=== PATIENT | female | born 1955 | race Asian ===

== ENCOUNTER 2019-04-05 14:53 | Emergency (ER) | payer OTHER ==
--- NOTE | 2019-04-05 14:58 | PDOC ---
Rapid Medical Evaluation Time Seen by Provider: 04/05/19 14:56 Medical Evaluation: Allergies Allergy/AdvReac Type Severity Reaction Status Date / Time No Known Drug Allergies Allergy Verified 04/25/14 14:31 04/05/19 14:56 This patient had a brief in-person evaluation by me. cc: tripped and fall while working, states fell onto both knees and right wrist states pain is worse on left knee. PE: NAD even and unlabored breathing right wrist with small amount of swelling left knee + tendernes, + swelling Orders: xray This patient will proceed to Ed for further evaluation Discharge Disposition - Diagnosis Fall - Referrals - Patient Instructions - Post Discharge Activity
[2019-04-05 14:59] VITALS: BP 156/89; PULSE 72; TEMP 98.2; BMI 23.8
[2019-04-05] MEDS ORDERED: IBUPROFEN 400 MG TABLET (FP) PO ONE ×3 (15:51→15:59)
--- NOTE | 2019-04-05 15:57 | PDOC ---
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 Complaints of pain to knee, and wrist. No head injury, has taken no medication for resolve Occurred: reports: just prior to arrival, this afternoon Severity: reports: mild, moderate Pain Location: reports: lower extremity (bilateral knees ), upper extremity ( right wrist ) Method of Injury: Yes: fall Modifying Factors: improves with: cold therapy Loss of Consciousness: no loss of consciousness Associated Symptoms (Fall): denies symptoms Past History - Travel Traveled outside of the country in the last 30 days: No Close contact w/someone who was outside of country & ill: No - Past Medical History Allergies/Adverse Reactions: Allergies Allergy/AdvReac Type Severity Reaction Status Date / Time No Known Drug Allergies Allergy Verified 04/05/19 14:59 Home Medications: Ambulatory Orders Triamterene/Hydrochlorothiazid [Triamterene-Hctz 37.5-25 mg Tb] 1 each PO HS Aspirin [ASA -] 81 mg PO DAILY #30 tab.chew 05/02/14 Cefadroxil Hydrate [Cefadroxil] 500 mg PO BID #20 ml 05/02/14 Oxycodone HCl/Acetaminophen [Percocet 5-325 mg Tablet -] 1 tab PO Q6H #30 tablet 05/02/14 Oxycodone HCl/Acetaminophen [Percocet 5-325 mg Tablet -] 2 tab PO Q6H #20 tablet 05/02/14 Leg Brace [Knee Brace] 1 each MC DAILY #1 each 04/05/19 Anemia: No Asthma: No Cancer: Yes (RIGHT BREAST DCIS) Cardiac Disorders: No (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) CVA: No COPD: No CHF: No Dementia: No Diabetes: No GI Disorders: No Disorders: No HTN: Yes Hypercholesterolemia: No Liver Disease: No Seizures: No Thyroid Disease: No - Surgical History Abdominal Surgery: No Appendectomy: No Cardiac Surgery: No Cholecystectomy: No Lung Surgery: No Neurologic Surgery: No Orthopedic Surgery: No - Suicide/Smoking/Psychosocial Hx Smoking History: Never smoked Have you smoked in the past 12 months: No Information on smoking cessation initiated: No Hx Alcohol Use: No Drug/Substance Use Hx: No Substance Use Type: None Hx Substance Use Treatment: No Review of Systems - Review of Systems Able to Perform ROS?: Yes Is the patient limited Finnish proficient: Yes Constitutional: Yes: Symptoms Reported, See HPI. No: Fever, Malaise HEENTM: No: Symptoms Reported Respiratory: No: Symptoms reported Musculoskeletal: Yes: Symptoms Reported, See HPI, Joint Pain, Joint Swelling, Muscle Pain. No: Neck Pain All Other Systems: Reviewed and Negative *Physical Exam - Vital Signs Last Vital Signs Temp Pulse Resp BP Pulse Ox 98.2 F 72 17 156/89 99 04/05/19 14:57 04/05/19 14:57 04/05/19 14:57 04/05/19 14:57 04/05/19 14:57 - Physical Exam General Appearance: Yes: Nourished, Appropriately Dressed, Apparent Distress, Mild Distress HEENT: positive: YUE, Normal ENT Inspection, TMs Normal, Pharynx Normal Musculoskeletal: positive: Normal Inspection. negative: CVA Tenderness Extremity: positive: Normal Capillary Refill, Normal Inspection, Swelling (mild swelling noted to patella with tenderness however no crepitus or step-offs noted. Is able to range of motion with some pain on severe flexion. Neurovascular intact distal to injury. Has no pretibial tenderness, no medial or lateral tenderness, no posterior fossa tenderness. Is primarily to the patella and superior) Integumentary: positive: Swelling, Bruising, Other (right wrist with full range of motion to lateral or medial aspect, able to supinate and pronate without tenderness, flex and extend without reproduce tenderness. 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 X-rays negative for fractures or dislocation. Given a prescription for knee immobilizer as there is none at hospital for. Encouraged to follow-up with orthopedist. *DC/Admit/Observation/Transfer Diagnosis at time of Disposition: Multiple contusions Fall Qualifiers: Encounter type: initial encounter Qualified Code(s): W19.XXXA - Unspecified fall, initial encounter Left knee sprain Qualifiers: Encounter type: initial encounter Involved ligament of knee: unspecified ligament Qualified Code(s): S83.92XA - Sprain of unspecified site of left knee, initial encounter - Discharge Dispostion Disposition: HOME Condition at time of disposition: Stable Decision to Admit order: No - Prescriptions Prescriptions: Leg Brace [Knee Brace] 1 each MC DAILY #1 each - Referrals Referrals: Baylee Lucio MD [Primary Care Provider] - Julio César Pink MD [Staff Physician] - - Patient Instructions Printed Discharge Instructions: DI for Knee Sprain Additional Instructions: Rest, ice to area on and off for 15 minutes 4-6 times a day Avoid heavy lifting or exercise until pain and swelling is resolved or until further directed Keep area highly elevated to reduce swelling Use splints/Oscar wrap as directed Followup with orthopedist in one to 2 days if not improving, if significantly improved may wait one week for followup with orthopedist May use ibuprofen every 6 hours as needed for pain - Post Discharge Activity Forms/Work/School Notes: Back to Work
== END 2019-04-05 16:01 | disposition home or self-care (01) ==
LOC: JERFT 14:53
DX: S83.8X2A Sprain of other specified parts of left knee, initial encounter (principal); S60.211A Contusion of right wrist, initial encounter; W18.09XA Striking against other object with subsequent fall, initial encounter; Y93.89 Activity, other specified; Y92.238 Other place in hospital as the place of occurrence of the external cause; Y99.0 Civilian activity done for income or pay
CPT/HCPCS: 73110-TC-RT-FY; 73130-TC-RT-FY; 73562-TC-LT-FY; 99281-25